=== PATIENT | male | born 1955 | race Hispanic/Latino ===

== ENCOUNTER 2017-06-04 10:39 | Outpatient (CLI) | payer BC ==
[2017-06-04 11:27] LABS: Blood Urea Nitrogen 15 mg/dL (9-20)
--- NOTE | 2017-06-04 13:52 | Cat Scan Report ---
CT CHEST WITH CONTRAST: HISTORY: Right breast cancer. COMPARISON: 07/25/12. TECHNIQUE: Helical CT in 1.25mm intervals following IV contrast. Sagittal and coronal reformatted images. FINDINGS: Thyroid gland: Normal. Tracheobronchial tree: Normal. Esophagus: Normal. Heart: Normal. Pericardium: Normal. Mediastinum: Normal. Lung [place]: Several tiny bilateral pulmonary nodules have developed since the previous examination. There are approximately 6-8 nodules bilaterally. The largest nodule measures 7.8 mm in the azygos esophageal recess of the medial right lower lobe. Pleural Spaces: Normal. Musculoskeletal: Stable right mastectomy changes. No suspicious bony lesion is identified. IMPRESSION: Multiple, bilateral, tiny pulmonary nodules have developed since 2012 which are highly suspicious for metastatic disease. Please note that due to these nodules tiny size, CT-guided percutaneous biopsy is not recommended because it would likely be nondiagnostic.
== END 2017-06-04 10:40 | disposition home or self-care (01) ==
LOC: CT 10:39
PROVIDERS: ATTEND Internal Medicine Hematology & Oncology
DX: C50.921 Malignant neoplasm of unspecified site of right male breast (principal); R91.8 Other nonspecific abnormal finding of lung field; Z90.11 Acquired absence of right breast and nipple
CPT/HCPCS: 36415; 71260; 82565; 84520; Q9967

== ENCOUNTER 2017-06-13 11:52 | Outpatient (CLI) | payer BC ==
--- NOTE | 2017-06-14 14:20 | PET Report ---
PET/CT:06/13/17 11:52:00 CLINICAL: Right breast cancer restaging. Right breast cancer was diagnosed over years ago and the patient has had a right mastectomy. RADIOPHARMACEUTICAL: 14.692mCi F18-FDG. COMPARISON: 09/28/10 PET/CT TECHNIQUE- Following intravenous injection of F-18 FDG and an approximately 60 minute uptake period, CT and PET images from the mid skull to the upper thighs were acquired with the patient in the fasted state. No contrast was administered. The CT protocol used for this PET CT study is designed for attenuation correction and anatomic localization of PET abnormalities. This metal spray operator CT is not desired to produce and cannot replace, oojgq-ar-cpr-art diagnostic CT scans with specific imaging protocols for different body parts and indications. Plasma glucose at the time of this test: 108g/dl. The standardized uptake values (SUV) are normalized to patient body weight and indicate the highest activity concentration (SUV max) in a given disease site. FINDINGS: Brain--Physiologic FDG uptake in the visualized regions of the brain. Neck--Physiologic FDG uptake . Chest--Physiologic FDG uptake in mediastinal blood pool and myocardium. Status post right mastectomy. No abnormal uptake in the chest wall. Lungs--No abnormal uptake. However, numerous bilateral noncalcified non-FDG avid multilobar lung nodules. The largest is in the right lower lobe adjacent to the left atrium and measures 8 mm image 102, series 1. The next largest is a 7 mm right upper lobe non-FDG avid lung nodule adjacent to the minor fissure on image 96, series 1. Pleura/pericardium--No abnormal uptake. Thoracic nodes--No abnormal uptake. Surgical clips in the right axilla. Hepatobiliary--No abnormal uptake. Liver background SUV mean, as a reference for comparing FDG studies, is 3.1 compared to 2.8 on the last exam. No liver mass. Spleen--No abnormal uptake. Pancreas--No abnormal uptake. Adrenal Glands--No abnormal uptake. Kidneys/Ureters/Bladder--No abnormal uptake. Abdominopelvic Nodes--No abnormal uptake. Bowel/Peritoneum/Mesentery--No abnormal uptake. Pelvic organs--No abnormal uptake. Bones/Soft Tissues--Borderline suspicious focal FDG uptake in the L4 vertebral body in 2 areas SUV 2.6. The most prominent is lateral in the midportion of the L4 vertebral body and there is subtle sclerosis on CT. IMPRESSION- 1. Numerous bilateral multilobar non-FDG avid noncalcified lung nodules which are suspicious for metastases. The largest is in the right lower lobe and measures 8 mm. None are likely to be amenable to CT-guided biopsy at this time. 2. A subtle sclerotic lesion in the L4 vertebral body and 2 areas of mildly suspicious FDG uptake in the L4 vertebral body. Neither of these lesions are amenable to CT guided biopsy at this time.
== END 2017-06-13 11:53 | disposition home or self-care (01) ==
LOC: PET 11:52
PROVIDERS: ATTEND Internal Medicine Hematology & Oncology
DX: C50.921 Malignant neoplasm of unspecified site of right male breast (principal); R91.8 Other nonspecific abnormal finding of lung field; M89.9 Disorder of bone, unspecified; Z79.899 Other long term (current) drug therapy
CPT/HCPCS: 78815; 82962; A9552

== ENCOUNTER 2017-09-19 11:00 | Outpatient (CLI) | payer BC ==
--- NOTE | 2017-09-19 15:23 | PET Report ---
PET SB TO MT SUBSEQUENT: HISTORY: Right sided male breast cancer, prostate cancer. TECHNIQUE: 12.7 millicuries F-18 FDG was administered intravenously. Noncontrast CT images and PET images were obtained from the skull base to the proximal thighs. Fused images were reviewed on a workstation. The patient's blood glucose level measured 86. COMPARISON: 06/13/17. FINDINGS: BRAIN: physiologic FDG uptake in the imaged brain. NECK: physiologic FDG uptake. MEDIASTINUM: physiologic FDG uptake. LUNGS: Multiple bilateral tiny pulmonary nodules are again identified. The nodules appear unchanged in size and number measuring less than 1 cm. No hypermetabolic activity is appreciated but this may be secondary to their small size. No infiltrate or interstitial process identified. PLEURA/PERICARDIUM: physiologic FDG uptake. THORACIC LYMPH NODES: physiologic FDG uptake. HEPATOBILIARY: physiologic FDG uptake. Solitary gallstone is noted measuring 1 cm. Mean liver SUV measures 2.9. PANCREAS: physiologic FDG uptake. SPLEEN: physiologic FDG uptake. ADRENAL GLANDS: physiologic FDG uptake. KIDNEYS/RENAL COLLECTING SYSTEMS: physiologic FDG uptake. Radiotherapy beads are identified in the prostate bed. BOWEL/MESENTERY: physiologic FDG uptake. PELVIC VISCERA: physiologic FDG uptake. ABDOMINAL/PELVIC LYMPH NODES: physiologic FDG uptake. MUSCULOSKELETAL: physiologic FDG uptake. The previously described uptake at L4 is not appreciated on this exam. IMPRESSION: Stable findings since 06/13/17. There are multiple bilateral tiny pulmonary nodules which are unchanged in size and number since 06/13/17. These nodules remain hypometabolic which may be secondary to their small size. Please note these nodules were not identified on a CT chest with contrast dated 07/25/12 and are presumably secondary to metastatic disease.
== END 2017-09-19 11:01 | disposition home or self-care (01) ==
LOC: PET 11:00
PROVIDERS: ATTEND Internal Medicine Hematology & Oncology
DX: C50.921 Malignant neoplasm of unspecified site of right male breast (principal); K80.20 Calculus of gallbladder without cholecystitis without obstruction; R91.8 Other nonspecific abnormal finding of lung field; R93.8 Abnormal findings on diagnostic imaging of other specified body structures; Z85.46 Personal history of malignant neoplasm of prostate
CPT/HCPCS: 78815; 82962; A9552

== ENCOUNTER 2017-12-19 09:55 | Outpatient (CLI) | payer BC ==
--- NOTE | 2017-12-20 12:07 | PET Report ---
PET/CT:12/19/17 09:55:00 CLINICAL: Right sided male breast cancer and prostate cancer restaging. RADIOPHARMACEUTICAL: 14.198mCi F18-FDG. COMPARISON: 09/19/17 PET/CT TECHNIQUE- Following intravenous injection of F-18 FDG and an approximately 60 minute uptake period, CT and PET images from the mid skull to the upper thighs were acquired with the patient in the fasted state. No contrast was administered. The CT protocol used for this PET CT study is designed for attenuation correction and anatomic localization of PET abnormalities. This grain weigher CT is not desired to produce and cannot replace, wpsxc-su-hxj-art diagnostic CT scans with specific imaging protocols for different body parts and indications. Plasma glucose at the time of this test: 99g/dl. The standardized uptake values (SUV) are normalized to patient body weight and indicate the highest activity concentration (SUV max) in a given disease site. FINDINGS: Brain--Physiologic FDG uptake in the visualized regions of the brain. Neck--Physiologic FDG uptake . Chest--Physiologic FDG uptake in mediastinal blood pool and myocardium. Lungs--No abnormal uptake. Multilobar bilateral noncalcified lung nodules have all increased slightly in size but remain non-FDG avid. The largest is in the right lower lobe and measures 9.6 x 8.3 mm compared to 7.0 x 6.3 mm on the last exam. Pleura/pericardium--No abnormal uptake. Thoracic nodes--No abnormal uptake. Hepatobiliary--No abnormal uptake. Liver background SUV mean, as a reference for comparing FDG studies, is 2.9 compared to 3.2 on the last exam. No liver mass. Spleen--No abnormal uptake. Pancreas--No abnormal uptake. Adrenal Glands--No abnormal uptake. Kidneys/Ureters/Bladder--No abnormal uptake. Abdominopelvic Nodes--No abnormal uptake. Bowel/Peritoneum/Mesentery--No abnormal uptake. Pelvic organs--No abnormal uptake. Brachytherapy seeds in the prostate. Bones/Soft Tissues--No abnormal uptake and no suspicious bone lesions. IMPRESSION-1. Slight increased size of bilateral multilobar non-FDG avid lung nodules with the largest measuring 1 cm in the right lower lobe. 2. No new disease.
== END 2017-12-19 09:56 | disposition home or self-care (01) ==
LOC: PET 09:55
PROVIDERS: ATTEND Internal Medicine Hematology & Oncology
DX: C50.921 Malignant neoplasm of unspecified site of right male breast (principal); C61 Malignant neoplasm of prostate; R91.8 Other nonspecific abnormal finding of lung field
CPT/HCPCS: 78815; 82962; A9552

== ENCOUNTER 2018-03-27 10:40 | Outpatient (CLI) | payer BC ==
--- NOTE | 2018-03-31 08:27 | PET Report ---
PET/CT:03/27/18 10:40:00 CLINICAL: Right sided male breast cancer and prostate cancer restaging. RADIOPHARMACEUTICAL: 12.353mCi F18-FDG. COMPARISON: 12/19/17 PET/CT TECHNIQUE- Following intravenous injection of F-18 FDG and an approximately 60 minute uptake period, CT and PET images from the mid skull to the upper thighs were acquired with the patient in the fasted state. No contrast was administered. The CT protocol used for this PET CT study is designed for attenuation correction and anatomic localization of PET abnormalities. This recycling tech CT is not desired to produce and cannot replace, bntct-zr-xfw-art diagnostic CT scans with specific imaging protocols for different body parts and indications. Plasma glucose at the time of this test: 90g/dl. The standardized uptake values (SUV) are normalized to patient body weight and indicate the highest activity concentration (SUV max) in a given disease site. FINDINGS: Brain--Physiologic FDG uptake in the visualized regions of the brain. Neck--Physiologic FDG uptake in mucosal structures. No mass or lymphadenopathy. Chest--Physiologic FDG uptake in mediastinal blood pool and myocardium. Status post right mastectomy. Lungs--Previously described bilateral multilobar lung nodules have increased slightly in size. The largest is in the right lower lobe and measures 10 x 9 mm compared to 10 x 8 mm on the last exam. It has become FDG avid with SUV 3.0. This nodule is directly posterior to the inferior right pulmonary vein and the left atrium. No new lung nodules. Pleura/pericardium--No abnormal uptake. No pleural effusion. Thoracic nodes--No abnormal uptake. Hepatobiliary--No abnormal uptake. Liver background SUV mean, as a reference for comparing FDG studies, is 3.4 compared to 2.9 on the last exam. No liver mass. Cholelithiasis but no signs of acute cholecystitis. Normal bile ducts. Spleen--No abnormal uptake. Pancreas--No abnormal uptake. Adrenal Glands--No abnormal uptake. Kidneys/Ureters/Bladder--No abnormal uptake. Abdominopelvic Nodes--No abnormal uptake. Bowel/Peritoneum/Mesentery--No abnormal uptake. Pelvic organs--No abnormal uptake. Brachytherapy seeds in the prostate. Bones/Soft Tissues--No abnormal uptake and no suspicious bone lesions. IMPRESSION-1. Slight increased size and increased FDG uptake in previously described pulmonary metastases. The dominant lung nodule measures 1 cm in the right lobe. No new lesions. 2. No evidence of hepatic, chandu or skeletal metastasis. 3. Cholelithiasis.
== END 2018-03-27 10:41 | disposition home or self-care (01) ==
LOC: PET 10:40
PROVIDERS: ATTEND Internal Medicine Hematology & Oncology
DX: C50.921 Malignant neoplasm of unspecified site of right male breast (principal)
CPT/HCPCS: 78815; 82962; A9552